=== PATIENT | male | born 1975 | race Caucasian/White ===

== ENCOUNTER 2019-07-25 07:13 | Emergency (ER) | payer MEDICAID ==
[~2019-07-25] VITALS: Ht 177.8 cm; Wt 115.5 kg
[2019-07-25 07:15] VITALS: Ht 177.8 cm; Wt 115.5 kg
[2019-07-25 08:11] VITALS: BP 141/99
== END 2019-07-25 08:11 | disposition home or self-care (01) ==
LOC: D.ER 07:13
DX: R53.1 Weakness (principal); R53.83 Other fatigue; J45.909 Unspecified asthma, uncomplicated; Z72.0 Tobacco use; R51 Headache

== ENCOUNTER 2019-09-12 05:27 | Emergency (ER) | payer MEDICAID ==
[~2019-09-12] VITALS: Ht 177.8 cm; Wt 110.9 kg
[2019-09-12 05:30] VITALS: Ht 177.8 cm; Wt 110.9 kg
[2019-09-12 06:05] LABS: CALC OSMOLALITY 280 mosm/kg (275-300); CALCIUM 9.5 mg/dL (8.5-10.1); CARBON DIOXIDE 24.8 mmol/L (21.0-32.0); CHLORIDE - SERUM 96 mmol/L (98-107); CREATININE - SERUM 2.1 mg/dL (0.6-1.3); POTASSIUM - SERUM 3.4 mmol/L (3.5-5.1); SODIUM 132 mmol/L (136-145); UREA NITROGEN 36 mg/dL (7-18); eGFR NON AFRICAN AMERICAN 37 mL/min (90-120)
[2019-09-12 06:06] LABS: GLUCOSE 242 mg/dL (74-106)
[2019-09-12 06:12] LABS: BASOPHILS 0.2 % (0-2); HEMATOCRIT 46.5 % (42.0-54.0); HEMOGLOBIN 16.2 g/dL (13.5-17.5); IMMATURE GRANULOCYTES 0.2 % (0-5); LYMPHOCYTES 27.8 % (15-50); MCHC 34.8 g/dL (31.0-37.0); MCV 88.9 fL (80.0-100.0); MEAN PLATELET VOLUME 9.9 fL (7.4-10.4); NEUTROPHILS 60.8 % (40-80); RBC 5.23 10x6/uL (4.20-6.10); RDW 12.4 % (11.5-14.5); WBC 14.1 10x3/uL (4.8-10.8)
[2019-09-12 06:22] LABS: ALBUMIN 4.3 g/dL (3.4-5.0); ALKALINE PHOSPHATASE 93 U/L (30-120); ALT (SGPT) 39 U/L (10-68); BILIRUBIN - TOTAL 0.63 mg/dL (0.2-1.3); CKMB 3.5 U/L (0.0-3.6); CREATINE KINASE 284 UL (21-232); MAGNESIUM - SERUM 2.2 mg/dL (1.8-2.4); PROTEIN - SERUM 8.2 g/dL (6.4-8.2)
[2019-09-12 06:27] LABS: TROPONIN-I < 0.017 ng/mL (0.000-0.060)
[2019-09-12 06:35] LABS: APTT 29.4 SECONDS (22.8-39.4); INR 1.03 (0.85-1.17); PROTIME 13.4 SECONDS (11.6-15.0)
[2019-09-12] MEDS ORDERED: SOMA350 MG PO (06:39)
[2019-09-12] MEDS ORDERED: HYDROCODON-ACE1 EAC7 PO (06:39)
[2019-09-12 06:54] VITALS: BP 148/94
[2019-09-12 06:59] LABS: PLATELET COUNT 288 10x3/uL (130-400)
== END 2019-09-12 07:08 | disposition home or self-care (01) ==
LOC: D.ER 05:27
PROVIDERS: Emergency Medicine
DX: R07.9 Chest pain, unspecified (principal); R06.00 Dyspnea, unspecified; J45.909 Unspecified asthma, uncomplicated